=== PATIENT | female | born 1940 | race Caucasian/White ===

== ENCOUNTER 2022-02-19 15:53 | Emergency (ER) | payer MEDICARE ==
[~2022-02-19] VITALS: Ht 170.2 cm; Wt 64.9 kg
[2022-02-19 16:06] VITALS: BP 136/68
[2022-02-19] MEDS ORDERED: DIPHTH,PERTUSS(ACELL),TET TOX 0.5 ML DISP.SYRIN. VAX IM ONE (17:00)
[2022-02-19] MEDS ORDERED: LIDOCAINE/EPI/TETRACAINE TOPICAL GEL 3 ML. TP ONE (17:00)
[2022-02-19] MEDS ORDERED: AMOX1TAB11 PO (17:10)
--- NOTE | 2022-02-19 17:11 | PHYS DOC ---
Past Medical History Past Medical History: A-Fib Past Surgical History: Coronary Bypass Surgery Smoking Status: Unknown if ever smoked Alcohol Use: None Drug Use: None General Adult EDM: Chief Complaint: ANIMAL BITE HPI: HPI: Patient is an 81-year-old female that presents today with an animal scratch. Patient states that she was trying to separate her 2 small dogs from fighting and one of them scratched her arm causing multiple puncture wounds from there nails. Patient states she does take Xarelto on a daily basis, and she states the dogs are hers and they are up-to-date on all of her immunizations, but she states she is due for a tetanus shot she has not had one in quite some time. Review of Systems: Review of Systems: Constitutional: Denies fever or chills. [] Eyes: Denies change in visual acuity. [] HENT: Denies nasal congestion or sore throat. [] Respiratory: Denies cough or shortness of breath. [] Cardiovascular: Denies chest pain or edema. [] GI: Denies abdominal pain, nausea, vomiting, bloody stools or diarrhea. [] : Denies dysuria. [] Musculoskeletal: Denies back pain or joint pain. [] Integument: Animal nail scratches to the right forearm denies rash. [] Neurologic: Denies headache, focal weakness or sensory changes. [] Endocrine: Denies polyuria or polydipsia. [] Lymphatic: Denies swollen glands. [] Psychiatric: Denies depression or anxiety. [] Heart Score: C/O Chest Pain: No Risk Factors: Risk Factors: DM, Current or recent (<one month) smoker, HTN, HLP, family history of CAD, obesity. Risk Scores: Score 0 - 3: 2.5% MACE over next 6 weeks - Discharge Home Score 4 - 6: 20.3% MACE over next 6 weeks - Admit for Clinical Observation Score 7 - 10: 72.7% MACE over next 6 weeks - Early Invasive Strategies Current Medications: Current Medications Medications (Trade) Dose Ordered Sig/Jasmyne Start Time Stop Time Status Last Admin Dose Admin Diphtheria/ Tetanus/Acell Pertussis (Boostrix) 0.5 ml ONCE ONCE 02/19/22 17:00 02/19/22 17:01 UNV Tetracaine/ Epinephrine/ Lidocaine (Let (Yhqb-Oaopxqx-Hwfbs) Gel) 3 ml 1X ONCE 02/19/22 17:00 02/19/22 17:01 UNV Allergies: Allergies: Allergies Coded Allergies Type Severity Reaction Last Updated Verified No Known Drug Allergies 02/19/22 No Physical Exam: PE: Constitutional: Well developed, well nourished, no acute distress, non-toxic appearance. [] HENT: Normocephalic, atraumatic, bilateral external ears normal, oropharynx moist, no oral exudates, nose normal. [] Eyes: PERRLA, EOMI, conjunctiva normal, no discharge. [] Neck: Normal range of motion, no tenderness, supple, no stridor. [] Cardiovascular:Heart rate regular rhythm, no murmur [] Lungs & Thorax: Bilateral breath sounds clear to auscultation [] Abdomen: Bowel sounds normal, soft, no tenderness, no masses, no pulsatile masses. [] Skin: Patient has 4 scratch giles on the right forearm, wounds are oozing at this time, ecchymosis is noted, wounds measure approximately 1 cm in length and are in a V-shaped. Back: No tenderness, no CVA tenderness. [] Extremities: Left arm has within normal limits range of motion, radial pulses 2+ sensory intact distal to the injury, cap refill is less than 2 seconds distal to the injury no tenderness, no cyanosis, no clubbing, ROM intact, no edema. [] Neurologic: Alert and oriented X 3, normal motor function, normal sensory function, no focal deficits noted. [] Psychologic: Affect normal, judgement normal, mood normal. [] Current Patient Data: Vital Signs: Vital Signs Date Time Temp Pulse Resp B/P (MAP) Pulse Ox O2 Delivery O2 Flow Rate FiO2 02/19/22 16:06 98.5 66 18 136/68 (90) 97 Room Air 98.5 EKG: EKG: [] Radiology/Procedures: Radiology/Procedures: [] Course & Med Decision Making: Course & Med Decision Making Pertinent Labs and Imaging studies reviewed. (See chart for details) Areas will be irrigated with copious amounts of normal saline by nursing staff, we will place Steri-Strips on the wounds to help keep the wounds closed and since her skin is so thin it will also help with healing process. Patient is to continue her current medications as prescribed, she will be given an antibiotic, no rabies vaccines are needed due to the fact that the dogs are hers and they are up-to-date with her shots with going February 07, 2022 to the vet for the rabies vaccine. Patient is agreeable with the plan of care and her primary care doctor is Dr. Granda which I encouraged her to follow-up towards the end of this week or early next week for further management. Dragon Disclaimer: Dragon Disclaimer: This electronic medical record was generated, in whole or in part, using a voice recognition dictation system. Departure Departure Impression: Primary Impression: Animal scratch Additional Impression: Contusion of left forearm, initial encounter Disposition: HOME / SELF CARE / HOMELESS Condition: STABLE Referrals: BEBA GRANDA MD (PCP) Patient Instructions: Animal Bite Additional Instructions: Augmentin 875 mg take 1 tablet twice daily for 7 days Cleanse wounds once daily with mild soap and water. Return to the emergency department for any signs and symptoms of infection which may include redness in your forearm, redness that is streaking up your arm towards your torso, increased swelling, drainage, redness, warmth, or development of a fever. Follow-up with your primary care physician early next week for further managemen t of this. Scripts Amoxicillin/Potassium Clav (AMOX TR-K CLV 875-125 MG TAB) 1 Each Tablet 1 TAB PO BID, #14 TAB Prov: DYLAN AMIN APRN 02/19/22 DYLAN AMIN APRN Feb 19, 2022 17:11
== END 2022-02-19 17:38 | disposition home or self-care (01) ==
LOC: ER 15:53
DX: S50.11XA Contusion of right forearm, initial encounter (principal); I48.91 Unspecified atrial fibrillation; Z95.1 Presence of aortocoronary bypass graft; W54.8XXA Other contact with dog, initial encounter; Y93.89 Activity, other specified; Y92.89 Other specified places as the place of occurrence of the external cause; Y99.8 Other external cause status
CPT/HCPCS: 90471; 90715; 99283

== ENCOUNTER → 2022-03-18 | Outpatient (CLI) | payer MEDICARE ==
[2022-02-19 16:06] VITALS: BP 136/68
[~2022-03-18] MED LIST: AMOX1TAB11 PO
--- NOTE | 2022-03-18 12:26 | KCIC ---
EXAM: Brain MRI without contrast. HISTORY: Dementia. Memory loss. TECHNIQUE: Multiplanar, multisequence magnetic resonance imaging of the brain was performed without c ontrast. COMPARISON: None. FINDINGS: There is no restricted diffusion to suggest acute or subacute infarction. There is no susce ptibility effect to suggest hemorrhage. There is no mass effect or midline shift. There is no hydroce phalus. There are multiple scattered focal areas of signal change within the cerebral white matter, a nonspec ific finding. There are small focal areas of encephalomalacia within the cerebellar hemispheres likel y due to chronic infarction. There is evidence of lens surgery. The paranasal sinuses mastoid air cells are unremarkable. There is slight decreased flow void within the distal left vertebral artery likely due to artifact from the s kull base or low flow. There are normal flow voids within the cerebral vessels. There is no suspiciou s calvarial lesion. There is incidental thinning of the bilateral parietal bones near the vertex, a n ormal variant. IMPRESSION: 1. No acute intracranial finding. 2. Scattered foci of signal change within the cerebral white matter, likely due to chronic small vess el disease in a patient of this age. 3. 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 Electronically signed by: Marlene Miller MD (03/18/2022 12:24 PM) [id number]
== END ==
LOC: KCIC MRI 10:46
PROVIDERS: ATTEND Nurse Practitioner Family
DX: I63.89 Other cerebral infarction (principal); R90.82 White matter disease, unspecified; F03.90 Unspecified dementia, unspecified severity, without behavioral disturbance, psychotic disturbance, mood disturbance, and anxiety; G25.0 Essential tremor
CPT/HCPCS: 70551

== ENCOUNTER → 2022-04-19 | Outpatient (CLI) | payer MEDICARE, OTHER ==
[~2022-04-19] MED LIST changes: +REGADENOSON 0.4 MG/5 ML DISP.SYRIN. IV ONE
--- NOTE | 2022-04-19 15:27 | RAD ---
MR#: [id number] Date of Study: 04/19/2022 Ordering Physician: WILLIAM SEGURA, Referring Physician: AXEL SHEA Tech: ERIC Miramontes, SHANTEL (R) (N) APPROVED REPORT Test Type: Pharmacological Stress Nurse/Tech: ADINA JARQUIN Test Indications: CAD Cardiac History: CAD, STENTS, MS, AFIB, CABG- SEE EMR Medications: SEE EMR Medical History: SEE EMR Resting ECG: AFIB/ SB W/PAC'S Resting Heart Rate: 54 bpm Resting Blood Pressure: 138/65mmHg Pretest Chest Pain: No chest pain Nurse/Tech Notes IRREGULAR RATE, LUNGS CTA, DENIED CHEST PAIN OR SHORTNESS OF BREATH. VSS. NO COMPLAINTS Consent: The procedure was explained to the patient in lay terms. Informed consent was witnessed. Chinmay eout was entered into [employer]. History and Stress Test performed by RT Aleksander (R) (N) Pharm. Details Pharmacologic stress testing was performed using 0.4mg per 5ml of regadenoson given intravenously ove r 7-10 seconds. Stress Symptoms PT TOLERATED THE PROCEDURE WELL, DENIED CHEST PAIN OR SHORTNESS OF BREATH. VSS. POST EXERCISE Reason for Termination: Infusion complete Max HR: 121 bpm Max Blood Pressure: 130/62mmHg Blood Pressure response to exercise: Normal blood pressure response during stress. Heart Rate response to exercise: WNL Chest Pain: No. Arrhythmia: . RHYTHM ESSENTIALLY UNCHANGED FROM BASELINE EKG. INTERPRETATION Stress EKG Conclusion: The resting EKG shows a sinus rhythm with PACs and nonspecific ST-T wave sr es. The stress EKG shows no significant changes from baseline. No EKG evidence of stress-induced ischemia. Imaging Protocol IMAGE PROTOCOL: Rest Tc-99m/stress Tc-99m 1 day Rest: Stress: Viability: Radiopharm.Tc99m HrluymvhwQp98a Sestamibi Dose10.5mCi 31mCi Img Date 04/19/2022 04/19/2022 Inj-Img [id number]. 60min. Rest Admin Site:IV - Right AntecubitalAdministrator:Abi Valentino, NMTCB, ARRT (R)(N) Stress Admin Site: IV - Right AntecubitalAdministrator: Carlos Tapia, RT (R)(N) STRESS DATA End Diast. Vol.159.0mlLVEDV index BSA89.0ml End Syst. Vol.83.0mlLVESV index BSA47.0ml Myocardial Cvca585.0gEject. Yjzmbaox78.0% Stress Scores Regional WT1.00Summed WT18.00 Regional WM0.00Summed WM10.00 LV Perfusion The stress scans show an inferior lateral defect. The rest scans show an inferior lateral wall defect. Nuclear imaging shows a fixed defect in the inferior lateral wall consistent with a prior infarct wit h possible mild royce-infarction ischemia. There are no other areas of reversible ischemia. Wall Motion Ejection fraction is calculated at 54% with a TID of 1.06. LV Perf. Quant 17 Seg. SSS21.00 17 Seg. SRS20.00 17 Seg. SDS4.00 Stress Defect Extent (% LAD)5.00Rest Defect Extent (% LAD)10.00Rev. Defect Extent (% LAD)1.30 Stress Defect Extent (% LCX) 98.80Rest Defect Extent (% LCX)97.50Rev. Defect Extent (% LCX)7.50 Stress Defect Extent (% RCA)33.30Rest Defect Extent (% RCA)40.00Rev. Defect Extent (% RCA)0.00 Stress Defect Extent (% CICI)40.20Rest Defect Extent (% CICI)41.50Rev. Defect Extent (% CICI)3.70 Conclusion 1. No EKG evidence of stress-induced ischemia. 2. Nuclear imaging is consistent with a prior infarct in the inferior lateral wall with possible mild royce-infarct ischemia. 3. No other areas of reversible ischemia are present. 4. LV ejection fraction of 54%. 5. Moderate risk Lexiscan nuclear stress test. Signed by : Stanislav Das MD Electronically Approved : 04/19/2022 15:27:18
== END ==
LOC: NM 08:45
PROVIDERS: ATTEND Internal Medicine Cardiovascular Disease
DX: I25.10 Atherosclerotic heart disease of native coronary artery without angina pectoris (principal)
CPT/HCPCS: 78452; 93017; A9500; J2785